=== PATIENT | female | born 1935 | race African-American/Black ===

== ENCOUNTER 2018-10-24 20:31 | Emergency (ER) | payer OTHER ==
[~2018-10-24] VITALS: Ht 165.1 cm; Wt 64.4 kg
[2018-10-24 20:35] VITALS: BP_SYST 159
--- NOTE | 2018-10-24 20:45 | NUR ---
2044 - Patient to ER bed 7 to gown for evaluation. Side rails up. Report given to CORBIN Mackay.
--- NOTE | 2018-10-24 20:49 | NUR ---
Pt AAOx4 ambulated into ED c/o 02/06 L flank pain radiating to L abdomen x 5 hours prior to arrival. PT denies N/V/D/dysuria. Skin dry and warm, breathing even and unlabored. No other injuries/complaints per pt/noted. Will continue to monitor.
--- NOTE | 2018-10-24 20:50 | NUR ---
Pt took [place] 5-325 with no relief.
--- NOTE | 2018-10-24 20:51 | NUR ---
ER at bedside examining patient.
--- NOTE | 2018-10-24 21:00 | NUR ---
Pt assisted to ambulate to bathroom in non-slip socks for urine sample. Urine dipstick performed.
[2018-10-24] MEDS ORDERED: NACL 0.9% 1,000 ML IV ONE (21:10)
[2018-10-24] MEDS ORDERED: DIPHENHYDRAMINE INJ 50 MG/ML VIAL IVP ONE (21:15)
[2018-10-24] MEDS ORDERED: MORPHINE 4 MG/ML INJ. SYRINGE IVP ONE (21:15)
[2018-10-24 21:35] LABS: BASOPHILS # (AUTO) 0.1 K/uL (0.0-0.2); BASOPHILS % (AUTO) 0.9 % (0.0-2.0); EOSINOPHILS # (AUTO) 0.3 K/uL (0.0-0.4); EOSINOPHILS % (AUTO) 4.6 % (0.0-4.0); HEMATOCRIT 39.7 % (36-48); HEMOGLOBIN 13.1 g/dL (12.0-16.0); LYMPHOCYTES # (AUTO) 1.1 K/uL (1.0-5.5); LYMPHOCYTES % (AUTO) 18.6 % (20.5-51.5); MEAN CORPUSCULAR HEMOGLOBIN 31 pg (27-31); MEAN CORPUSCULAR HGB CONC 33 % (32-36); MEAN CORPUSCULAR VOLUME 92 fL (79.0-98.0); MONOCYTES # (AUTO) 0.6 K/uL (0.0-1.0); NEUTROPHILS # (AUTO) 3.9 K/uL (1.8-7.7); NEUTROPHILS % (AUTO) 65.9 % (40.0-70.0); PLATELET COUNT (AUTO) 210 K/uL (130-430); RED CELL DISTRIBUTION WIDTH 14.3 % (9.0-15.0); WHITE BLOOD COUNT (AUTO) 5.9 K/uL (4.8-10.8)
--- NOTE | 2018-10-24 21:49 | NUR ---
Pt went to CT scan via [facility]. Tolerated well. WIll cont. to monitor.
[2018-10-24 21:58] LABS: ANION GAP 9 (5-15); CALCIUM 9.4 mg/dL (8.4-11.0); CHLORIDE 104 mmol/L (98-107); CREATININE 1.06 mg/dL (0.55-1.30); GLUCOSE 135 mg/dL (70-99); POTASSIUM 4.1 mmol/L (3.5-5.1); SODIUM SERUM 139 mmol/L (136-145); UREA NITROGEN, BLOOD 18 mg/dL (8-21)
[2018-10-24 22:03] LABS: ALANINE AMINOTRANSFERASE 22 U/L (12-78); ALBUMIN 3.2 g/dL (3.4-4.8); ASPARTATE AMINOTRANSFERASE 22 U/L (10-37); TOTAL BILIRUBIN 0.5 mg/dL (0.0-1.0)
[2018-10-24 22:22] LABS: BILIRUBIN,URINE NEGATIVE (NEGATIVE); BLOOD, URINE NEGATIVE (NEGATIVE); CLARITY/URINE CLEAR (CLEAR); COLOR,URINE YELLOW (YELLOW); GLUCOSE,URINE NEGATIVE (NEGATIVE); KETONES,URINE TRACE (NEGATIVE); LEUKOCYTE ESTERASE ,URINE 2+ (NEGATIVE); NITRITE, URINE NEGATIVE (NEGATIVE); PROTEIN URINE TRACE (NEGATIVE)
[2018-10-24 22:27] LABS: RBC,URINE 0-3 /HPF (0-3)
[2018-10-24 22:28] LABS: BACTERIA,URINE MODERATE /HPF (None Seen)
--- NOTE | 2018-10-24 23:00 | NUR ---
Pts son states he wants to step out for a litttle he left his number. Tyler [phone]
[2018-10-24] MEDS ORDERED: cefTRIAXone 1 GM IVPB PREMIX 50 ML IV ONE (23:45)
[2018-10-25 00:20] VITALS: BP_SYST 159
--- NOTE | 2018-10-25 00:20 | NUR ---
Patient given written and verbal discharge instructions and verbalizes understanding. ER MD Dr. Gardiner discussed with patient the results and treatment provided. Patient in stable condition. ID arm band removed. IV catheter removed intact and dressing applied, no active bleeding. Rx of Keflex given. Patient educated on pain management and to follow up with PMD. Pain Scale 2/10, tolerable for pt. Opportunity for questions provided and answered. Medication side effect fact sheet provided.
== END 2018-10-25 00:20 | disposition home or self-care (01) ==
LOC: SED 20:31
DX: N39.0 Urinary tract infection, site not specified (principal); I10 Essential (primary) hypertension
CPT/HCPCS: 36415; 74176; 80053; 81000; 85025; 87040; 96365; 96375; 99284; J0696; J1200; J2270; J7030

== ENCOUNTER 2021-09-08 13:43 | Emergency (ER) | payer OTHER ==
[~2021-09-08] VITALS: Ht 162.6 cm; Wt 45.4 kg
[2021-09-08 13:57] VITALS: BP_SYST 207
--- NOTE | 2021-09-08 13:57 | NUR ---
Patient to ER bed 06 to gown for evaluation. Side rails up.
--- NOTE | 2021-09-08 13:57 | NUR ---
pt driven to the er by son. pt presented to er with complaint of constipation. her last bowel movement was 7 days ago. patient denies any pain. patient took over the counter stool 2 days ago and fiber drink. auscultated pt abdomen pt has active bowel sounds. pt denies vomiting. pt resting comfortably inbed, bed lowered and locked rails up
--- NOTE | 2021-09-08 14:08 | NUR ---
at pt bedside
[2021-09-08 14:34] LABS: BILIRUBIN,URINE NEGATIVE (NEGATIVE); CLARITY/URINE CLEAR (CLEAR); COLOR,URINE YELLOW (YELLOW); GLUCOSE,URINE NEGATIVE (NEGATIVE); KETONES,URINE NEGATIVE (NEGATIVE); LEUKOCYTE ESTERASE ,URINE TRACE (NEGATIVE); NITRITE, URINE NEGATIVE (NEGATIVE); PROTEIN URINE 1+ (NEGATIVE); UROBILINOGEN,URINE 0.2 (0.2-1.0)
[2021-09-08 14:43] LABS: BLOOD, URINE TRACE (NEGATIVE)
[2021-09-08 14:44] LABS: BACTERIA,URINE FEW /HPF (None Seen); MUCUS,URINE 1+ /LPF (None Seen)
[2021-09-08 15:05] LABS: ANION GAP 6 (5-15); BASOPHILS % (AUTO) 0.6 % (0.0-2.0); CALCIUM 9.6 mg/dL (8.4-11.0); CHLORIDE 105 mmol/L (98-107); CREATININE 0.81 mg/dL (0.55-1.30); EOSINOPHILS # (AUTO) 0.1 K/uL (0.0-0.4); EOSINOPHILS % (AUTO) 3.1 % (0.0-4.0); GLUCOSE 111 mg/dL (70-99); HEMATOCRIT 41.7 % (36-48); HEMOGLOBIN 13.8 g/dL (12.0-16.0); LYMPHOCYTES # (AUTO) 0.8 K/uL (1.0-5.5); LYMPHOCYTES % (AUTO) 22.3 % (20.5-51.5); MEAN CORPUSCULAR HEMOGLOBIN 30 pg (27-31); MEAN CORPUSCULAR HGB CONC 33 % (32-36); MEAN CORPUSCULAR VOLUME 92 fL (79.0-98.0); MONOCYTES # (AUTO) 0.3 K/uL (0.0-1.0); MONOCYTES % (AUTO) 9.3 % (1.7-9.3); NEUTROPHILS # (AUTO) 2.3 K/uL (1.8-7.7); NEUTROPHILS % (AUTO) 64.7 % (40.0-70.0); PLATELET COUNT (AUTO) 145 K/uL (130-430); POTASSIUM 4.2 mmol/L (3.5-5.1); RED BLOOD CELL COUNT(AUTO) 4.54 MIL/uL (4.2-6.2); RED CELL DISTRIBUTION WIDTH 14.2 % (9.0-15.0); SODIUM SERUM 140 mmol/L (136-145); UREA NITROGEN, BLOOD 10 mg/dL (8-21); WHITE BLOOD COUNT (AUTO) 3.5 K/uL (4.8-10.8)
[2021-09-08 15:17] LABS: ALANINE AMINOTRANSFERASE 11 U/L (12-78); ALBUMIN 3.5 g/dL (3.4-4.8); AMYLASE 43 U/L (0-100); ASPARTATE AMINOTRANSFERASE 22 U/L (10-37); LACTATE DEHYDROGENASE 204 U/L (81-234); LIPASE 84 U/L (73-393); TOTAL BILIRUBIN 0.6 mg/dL (0.0-1.0)
[2021-09-08] MEDS ORDERED: MAGN296S8 PO ×2 (15:33→15:54)
[2021-09-08] MEDS ORDERED: DOCU-144 PO ×2 (15:33→15:54)
[2021-09-08] MEDS ORDERED: FLEETMO RC ×2 (15:33→15:54)
--- NOTE | 2021-09-08 16:02 | NUR ---
Patient given written and verbal discharge instructions and verbalizes understanding. ER Dr Georgi BARKER discussed with patient the results and treatment provided. Patient in stable condition. ID arm band removed. Rx of docusate sodium, mineral oil (fleet mineral oil enema)magnesium citrate given. Patient educated on pain management and to follow up with PMD. Pain Scale . Opportunity for questions provided and answered. Medication side effect fact sheet provided.
[2021-09-08 16:07] VITALS: BP_SYST 178
[2021-09-08 17:20] LABS: C-REACTIVE PROTEIN QUANT < 0.2 mg/dL (0-0.5)
== END 2021-09-08 16:07 | disposition home or self-care (01) ==
LOC: SED 13:43
DX: K59.00 Constipation, unspecified (principal); I10 Essential (primary) hypertension
CPT/HCPCS: 36415; 76376; 80053; 81000; 82150; 83605; 83615; 83690; 84484; 85025; 86140; 87086; 99284

== ENCOUNTER 2022-09-17 16:45 | Inpatient (IN) | payer OTHER ==
[~2022-09-17] VITALS: Ht 165.1 cm; Wt 59.0 kg
[~2022-09-17 16:45] MED LIST: DOCU-144 PO; FLEETMO RC; MAGN296S8 PO
[2022-09-17 17:00] VITALS: BP_SYST 142
[2022-09-17] MEDS ORDERED: ASPIRIN 81 MG TAB.CHEW PO ONE (17:30)
[2022-09-17] MEDS ORDERED: ONDANSETRON HCL 4 MG/2 ML VIAL IVP ONE (17:45)
[2022-09-17] MEDS ORDERED: NACL 0.9% 1,000 ML IV ONE (17:45)
[2022-09-17] MEDS ORDERED: MORPHINE 2 MG/ML INJ. SYRINGE IVP ONE (17:45)
[2022-09-17 17:47] LABS: BASOPHILS % (AUTO) 0.6 % (0.0-2.0); EOSINOPHILS # (AUTO) 0.2 K/uL (0.0-0.4); EOSINOPHILS % (AUTO) 2.8 % (0.0-4.0); HEMATOCRIT 34.8 % (36-48); HEMOGLOBIN 11.5 g/dL (12.0-16.0); LYMPHOCYTES % (AUTO) 13.2 % (20.5-51.5); MEAN CORPUSCULAR HEMOGLOBIN 32 pg (27-31); MEAN CORPUSCULAR HGB CONC 33 % (32-36); MEAN CORPUSCULAR VOLUME 95 fL (79.0-98.0); MONOCYTES # (AUTO) 0.7 K/uL (0.0-1.0); MONOCYTES % (AUTO) 9.8 % (1.7-9.3); NEUTROPHILS # (AUTO) 5.6 K/uL (1.8-7.7); NEUTROPHILS % (AUTO) 73.6 % (40.0-70.0); PLATELET COUNT (AUTO) 150 K/uL (130-430); RED BLOOD CELL COUNT(AUTO) 3.66 MIL/uL (4.2-6.2); RED CELL DISTRIBUTION WIDTH 14.5 % (9.0-15.0); WHITE BLOOD COUNT (AUTO) 7.6 K/uL (4.8-10.8)
[2022-09-17 17:50] LABS: ANION GAP 3 (5-15); CALCIUM 8.4 mg/dL (8.4-11.0); CHLORIDE 106 mmol/L (98-107); CREATININE 0.92 mg/dL (0.55-1.30); GLUCOSE 139 mg/dL (70-99); UREA NITROGEN, BLOOD 15 mg/dL (8-21)
[2022-09-17 17:57] LABS: ALANINE AMINOTRANSFERASE 15 U/L (12-78); ALBUMIN 3.1 g/dL (3.4-4.8); ASPARTATE AMINOTRANSFERASE 18 U/L (10-37); TOTAL BILIRUBIN 0.4 mg/dL (0.0-1.0)
[2022-09-17] MEDS ORDERED: AMLO10TA88 PO (22:13)
[2022-09-17] MEDS ORDERED: LISI20TA30 PO (22:13)
[2022-09-17] MEDS ORDERED: AMLO5TAB92 PO (22:14)
[2022-09-17] MEDS ORDERED: ATOR40TA68 PO (22:16)
[2022-09-17] MEDS ORDERED: METO100T14 PO (22:16)
[2022-09-17] MEDS ORDERED: ACETAMINOPHEN 325 MG TABLET PO PRN (22:30)
[2022-09-17] MEDS ORDERED: ONDANSETRON HCL 4 MG/2 ML VIAL IVP PRN (22:30)
[2022-09-17] MEDS ORDERED: MILK OF MAGNESIA 30 ML UDC PO PRN (22:30)
[2022-09-17] MEDS ORDERED: NALOXONE HCL 0.4 MG/ML AMP (NARCAN) IVP PRN (22:30)
[2022-09-17 23:25] VITALS: BP_SYST 148
[2022-09-18] MEDS: MORPHINE 4 MG INJ. 4 MG/ML VIAL IVP PRN ×3 (00:17→18:06)
[2022-09-18] MEDS: D5LR 1,000 ML IV SCH ×3 (00:19→23:30)
[2022-09-18 03:00] VITALS: BP_SYST 125
[2022-09-18 03:06] LABS: BILIRUBIN,URINE NEGATIVE (NEGATIVE); CLARITY/URINE CLEAR (CLEAR); COLOR,URINE YELLOW (YELLOW); GLUCOSE,URINE NEGATIVE (NEGATIVE); KETONES,URINE NEGATIVE (NEGATIVE); LEUKOCYTE ESTERASE ,URINE NEGATIVE (NEGATIVE); NITRITE, URINE NEGATIVE (NEGATIVE); PROTEIN URINE NEGATIVE (NEGATIVE)
[2022-09-18 03:38] LABS: BLOOD, URINE TRACE (NEGATIVE)
[2022-09-18 08:11] VITALS: BP_SYST 153
[2022-09-18 08:29] LABS: ANION GAP 6 (5-15); CALCIUM 8.2 mg/dL (8.4-11.0); CHLORIDE 106 mmol/L (98-107); CREATININE 0.88 mg/dL (0.55-1.30); GLUCOSE 162 mg/dL (70-99); UREA NITROGEN, BLOOD 13 mg/dL (8-21)
[2022-09-18 08:31] LABS: BASOPHILS % (AUTO) 0.4 % (0.0-2.0); EOSINOPHILS % (AUTO) 0.4 % (0.0-4.0); HEMATOCRIT 32.9 % (36-48); LYMPHOCYTES # (AUTO) 0.8 K/uL (1.0-5.5); LYMPHOCYTES % (AUTO) 13.1 % (20.5-51.5); MEAN CORPUSCULAR HEMOGLOBIN 32 pg (27-31); MEAN CORPUSCULAR HGB CONC 33 % (32-36); MEAN CORPUSCULAR VOLUME 96 fL (79.0-98.0); MONOCYTES # (AUTO) 0.6 K/uL (0.0-1.0); MONOCYTES % (AUTO) 10.4 % (1.7-9.3); NEUTROPHILS # (AUTO) 4.4 K/uL (1.8-7.7); NEUTROPHILS % (AUTO) 75.7 % (40.0-70.0); PLATELET COUNT (AUTO) 139 K/uL (130-430); RED BLOOD CELL COUNT(AUTO) 3.44 MIL/uL (4.2-6.2); RED CELL DISTRIBUTION WIDTH 14.5 % (9.0-15.0); WHITE BLOOD COUNT (AUTO) 5.9 K/uL (4.8-10.8)
[2022-09-18 08:32] LABS: INR 0.9 (0.8-1.2); PROTHROMBIN TIME 9.8 SECS (9.5-12.5)
[2022-09-18 08:44] LABS: TOTAL IRON BIND. CAPACITY 215 ug/dL (250-450)
[2022-09-18] MEDS ORDERED: METOPROLOL TARTRATE PO SCH (09:00)
[2022-09-18] MEDS ORDERED: DOCUSATE SODIUM 100 MG CAPSULE PO SCH (09:00)
[2022-09-18] MEDS: amLODIPine BESYLATE 5 MG TABLET PO SCH (09:19)
[2022-09-18] MEDS: lisinopriL 20 MG TABLET PO SCH (09:20)
[2022-09-18] MEDS: ATORVASTATIN 20 MG TABLET PO SCH (09:21)
[2022-09-18] MEDS: METOPROLOL TARTRATE 50 MG TABLET PO SCH ×2 (09:22→20:49)
[2022-09-18] MEDS ORDERED: DORZ10DR13 EACH EYE (10:01)
[2022-09-18] MEDS ORDERED: LATA5DRO EACH EYE (10:01)
[2022-09-18] MEDS ORDERED: [UNRECOGNIZED DRUG - CODE] EACH EYE (10:02)
[2022-09-18] MEDS ORDERED: DOCUSATE SODIUM 250 MG CAPSULE PO ONE (10:45)
[2022-09-18] MEDS ORDERED: MULTIVITS,CA,MINERALS/IRON/FA 1 TABLET PO ONE (11:45)
[2022-09-18] MEDS ORDERED: CHOLECALCIFEROL (VITAMIN D3) 2,000 UNIT TABLET PO ONE (11:45)
[2022-09-18 12:00] VITALS: BP_SYST 140
[2022-09-18 16:00] VITALS: BP_SYST 135
[2022-09-18] MEDS: Latanoprostene Bunod (Vyzulta) OP SCH (18:05)
[2022-09-18] MEDS: DOCUSATE SODIUM 250 MG CAPSULE PO SCH (20:47)
[2022-09-18 22:12] VITALS: BP_SYST 134
[2022-09-19] VITALS: BP_SYST 137
[2022-09-19 03:18] VITALS: BP_SYST 134
[2022-09-19] MEDS: MORPHINE 2 MG/ML INJ. SYRINGE IVP PRN ×2 (03:36→23:26)
[2022-09-19 08:09] VITALS: BP_SYST 114
[2022-09-19] MEDS: DORZOLAMIDE HCL/TIMOLOL MAL. 10 ML EYE DROPS (COSOPT) EACH EYE SCH (08:18)
[2022-09-19] MEDS: ATORVASTATIN 20 MG TABLET PO SCH (08:19)
[2022-09-19] MEDS: lisinopriL 20 MG TABLET PO SCH (08:20)
[2022-09-19] MEDS: METOPROLOL TARTRATE 50 MG TABLET PO SCH ×2 (08:21→20:17)
[2022-09-19] MEDS: MULTIVITS,CA,MINERALS/IRON/FA 1 TABLET PO SCH (08:22)
[2022-09-19] MEDS: DOCUSATE SODIUM 250 MG CAPSULE PO SCH ×2 (08:22→20:17)
[2022-09-19] MEDS: amLODIPine BESYLATE 5 MG TABLET PO SCH (08:22)
[2022-09-19] MEDS: CHOLECALCIFEROL (VITAMIN D3) 2,000 UNIT TABLET PO SCH (08:23)
[2022-09-19] MEDS ORDERED: LATANOPROSTENE BUNOD EACH EYE SCH (09:00)
[2022-09-19] MEDS: D5LR 1,000 ML IV SCH (12:16)
[2022-09-19 12:52] VITALS: BP_SYST 125
[2022-09-19 16:28] VITALS: BP_SYST 118
[2022-09-19 20:00] VITALS: BP_SYST 142
[2022-09-19] MEDS: Latanoprostene Bunod (Vyzulta) OP SCH (20:19)
[2022-09-20] MEDS: D5LR 1,000 ML IV SCH ×2 (00:30→16:24)
[2022-09-20 00:55] VITALS: BP_SYST 143
[2022-09-20 08:00] VITALS: BP_SYST 131
[2022-09-20] MEDS: amLODIPine BESYLATE 5 MG TABLET PO SCH (08:45)
[2022-09-20] MEDS: MULTIVITS,CA,MINERALS/IRON/FA 1 TABLET PO SCH (08:45)
[2022-09-20] MEDS: CHOLECALCIFEROL (VITAMIN D3) 2,000 UNIT TABLET PO SCH (08:46)
[2022-09-20] MEDS: ATORVASTATIN 20 MG TABLET PO SCH (08:47)
[2022-09-20] MEDS: DOCUSATE SODIUM 250 MG CAPSULE PO SCH ×2 (08:47→20:10)
[2022-09-20] MEDS: lisinopriL 20 MG TABLET PO SCH (08:47)
[2022-09-20] MEDS: DORZOLAMIDE HCL/TIMOLOL MAL. 10 ML EYE DROPS (COSOPT) EACH EYE SCH (08:48)
[2022-09-20] MEDS: METOPROLOL TARTRATE 50 MG TABLET PO SCH ×2 (08:48→20:10)
[2022-09-20 11:34] VITALS: BP_SYST 131
[2022-09-20 16:17] VITALS: BP_SYST 136
[2022-09-20] MEDS: Latanoprostene Bunod (Vyzulta) OP SCH (18:14)
[2022-09-20] MEDS ORDERED: PIPERACILLIN/TAZO 3.375/DEX-IS 50 ML IV ONE (19:00)
[2022-09-20 20:00] VITALS: BP_SYST 155
[2022-09-20] MEDS: PIPERACILLIN/TAZO 3.375/DEX-IS 50 ML IV SCH (23:07)
[2022-09-21] VITALS: BP_SYST 127
[2022-09-21] MEDS: D5LR 1,000 ML IV SCH ×3 (01:30→22:55)
[2022-09-21 02:24] VITALS: BP_SYST 155
[2022-09-21] MEDS: PIPERACILLIN/TAZO 3.375/DEX-IS 50 ML IV SCH ×4 (06:02→23:19)
[2022-09-21 07:30] VITALS: BP_SYST 133
[2022-09-21] MEDS: METOPROLOL TARTRATE 50 MG TABLET PO SCH ×2 (09:00→20:59)
[2022-09-21] MEDS: DOCUSATE SODIUM 250 MG CAPSULE PO SCH ×2 (09:00→20:59)
[2022-09-21] MEDS: ATORVASTATIN 20 MG TABLET PO SCH (09:00)
[2022-09-21] MEDS: MULTIVITS,CA,MINERALS/IRON/FA 1 TABLET PO SCH (09:00)
[2022-09-21] MEDS: CHOLECALCIFEROL (VITAMIN D3) 2,000 UNIT TABLET PO SCH (09:00)
[2022-09-21] MEDS: lisinopriL 20 MG TABLET PO SCH (09:00)
[2022-09-21] MEDS: amLODIPine BESYLATE 5 MG TABLET PO SCH (09:00)
[2022-09-21] MEDS: DORZOLAMIDE HCL/TIMOLOL MAL. 10 ML EYE DROPS (COSOPT) EACH EYE SCH (09:00)
[2022-09-21] MEDS ORDERED: BUPIVACAINE /PF 0.5% 30 ML VIAL ONE (10:00)
[2022-09-21] MEDS ORDERED: NS IRRIG SOLN 1000 ML IR ONE (10:00)
[2022-09-21] MEDS ORDERED: fentaNYL CITRATE/PF 100 MCG/2 ML AMP IVP ONE (10:00)
[2022-09-21] MEDS ORDERED: LR 1,000 ML IV.SOLN IV ONE (10:00)
[2022-09-21] MEDS ORDERED: DESFLURANE 15 MIN GAS INH ONE (10:00)
[2022-09-21] MEDS ORDERED: ceFAZolin SODIUM 1 GM VIAL ONE (10:00)
[2022-09-21] MEDS ORDERED: DEXAMETHASONE SOD PHOSPHATE 4 MG/ML VIAL ONE (10:00)
[2022-09-21] MEDS ORDERED: WATER FOR IRRIGATION,STERILE 1,000 ML IRRIG.SOLN IR ONE (10:00)
[2022-09-21] MEDS ORDERED: KETOROLAC TROMETHAMINE 30 MG VIAL ONE (10:00)
[2022-09-21] MEDS ORDERED: ONDANSETRON HCL 4 MG/2 ML VIAL ONE (10:00)
[2022-09-21] MEDS ORDERED: PROPOFOL 200MG/ 20ML VIAL (DIPRIVAN) IV ONE (10:00)
[2022-09-21] MEDS ORDERED: ACETAMINOPHEN I.V. 1000 MG 100 ML IV ONE (10:29)
[2022-09-21] MEDS ORDERED: NALOXONE HCL 0.4 MG/ML AMP (NARCAN) IVP PRN ×2 (10:45)
[2022-09-21] MEDS ORDERED: HYDROmorphone 1 MG/ML INJ. CARTRIDGE IVP PRN ×2 (10:45)
[2022-09-21] MEDS ORDERED: CYANOCOBALAMIN 1000 MCG/ML VIAL IM ONE (17:00)
[2022-09-21 17:33] VITALS: BP_SYST 117
[2022-09-21] MEDS: SOD FERRIC GLUC COMPLEX/SUC 125 MG in NS 100 ML IV SCH (18:40)
[2022-09-21] MEDS: Latanoprostene Bunod (Vyzulta) OP SCH (18:45)
[2022-09-21 20:00] VITALS: BP_SYST 123
[2022-09-22] VITALS: BP_SYST 122
[2022-09-22] MEDS: PIPERACILLIN/TAZO 3.375/DEX-IS 50 ML IV SCH (06:37)
[2022-09-22 06:45] LABS: BASOPHILS % (AUTO) 0.2 % (0.0-2.0); EOSINOPHILS % (AUTO) 0.1 % (0.0-4.0); HEMATOCRIT 22.6 % (36-48); HEMOGLOBIN 7.5 g/dL (12.0-16.0); LYMPHOCYTES # (AUTO) 0.5 K/uL (1.0-5.5); LYMPHOCYTES % (AUTO) 8.3 % (20.5-51.5); MEAN CORPUSCULAR HEMOGLOBIN 31 pg (27-31); MEAN CORPUSCULAR HGB CONC 33 % (32-36); MEAN CORPUSCULAR VOLUME 94 fL (79.0-98.0); MONOCYTES # (AUTO) 0.8 K/uL (0.0-1.0); MONOCYTES % (AUTO) 12.7 % (1.7-9.3); NEUTROPHILS # (AUTO) 5.1 K/uL (1.8-7.7); NEUTROPHILS % (AUTO) 78.7 % (40.0-70.0); PLATELET COUNT (AUTO) 133 K/uL (130-430); RED BLOOD CELL COUNT(AUTO) 2.41 MIL/uL (4.2-6.2); RED CELL DISTRIBUTION WIDTH 14.2 % (9.0-15.0); WHITE BLOOD COUNT (AUTO) 6.5 K/uL (4.8-10.8)
[2022-09-22] MEDS: MORPHINE 2 MG/ML INJ. SYRINGE IVP PRN (06:46)
[2022-09-22 07:05] LABS: ANION GAP 6 (5-15); CALCIUM 7.6 mg/dL (8.4-11.0); CHLORIDE 104 mmol/L (98-107); CREATININE 0.89 mg/dL (0.55-1.30); GLUCOSE 143 mg/dL (70-99); UREA NITROGEN, BLOOD 19 mg/dL (8-21)
[2022-09-22] MEDS ORDERED: CEFAZOLIN 2 GM IVPB PREMIX 50 ML IV ONE (08:30)
[2022-09-22 08:40] VITALS: BP_SYST 135
[2022-09-22] MEDS: CYANOCOBALAMIN (VITAMIN B-12) 1,000 MCG TABLET PO SCH (09:48)
[2022-09-22] MEDS: lisinopriL 20 MG TABLET PO SCH (09:49)
[2022-09-22] MEDS: amLODIPine BESYLATE 5 MG TABLET PO SCH (09:49)
[2022-09-22] MEDS: DOCUSATE SODIUM 250 MG CAPSULE PO SCH ×2 (09:49→21:29)
[2022-09-22] MEDS: METOPROLOL TARTRATE 50 MG TABLET PO SCH ×2 (09:50→21:29)
[2022-09-22] MEDS: DORZOLAMIDE HCL/TIMOLOL MAL. 10 ML EYE DROPS (COSOPT) EACH EYE SCH (09:50)
[2022-09-22] MEDS: ATORVASTATIN 20 MG TABLET PO SCH (09:51)
[2022-09-22] MEDS: MULTIVITS,CA,MINERALS/IRON/FA 1 TABLET PO SCH (09:51)
[2022-09-22] MEDS: CHOLECALCIFEROL (VITAMIN D3) 2,000 UNIT TABLET PO SCH (09:51)
[2022-09-22 11:19] VITALS: BP_SYST 113
[2022-09-22] MEDS ORDERED: EPOETIN ALFA-EPBX 4,000 UNITS/ML VIAL SUBCUT ONE (14:30)
[2022-09-22] MEDS: CEFAZOLIN 2 GM IVPB PREMIX 50 ML IV SCH ×2 (14:44→21:31)
[2022-09-22] MEDS: D5LR 1,000 ML IV SCH (14:45)
[2022-09-22 16:00] VITALS: BP_SYST 115
[2022-09-22] MEDS: MORPHINE 4 MG INJ. 4 MG/ML VIAL IVP PRN (17:47)
[2022-09-22] MEDS: SOD FERRIC GLUC COMPLEX/SUC 125 MG in NS 100 ML IV SCH (17:48)
[2022-09-22] MEDS: Latanoprostene Bunod (Vyzulta) OP SCH (17:52)
[2022-09-22 20:00] VITALS: BP_SYST 112
[2022-09-23] VITALS: BP_SYST 106
[2022-09-23] MEDS: D5LR 1,000 ML IV SCH (03:30)
[2022-09-23] MEDS: CEFAZOLIN 2 GM IVPB PREMIX 50 ML IV SCH (05:27)
[2022-09-23 06:18] LABS: ANION GAP 5 (5-15); CALCIUM 7.6 mg/dL (8.4-11.0); CHLORIDE 105 mmol/L (98-107); GLUCOSE 128 mg/dL (70-99); UREA NITROGEN, BLOOD 17 mg/dL (8-21)
[2022-09-23 07:26] LABS: BASOPHILS % (AUTO) 0.6 % (0.0-2.0); EOSINOPHILS # (AUTO) 0.3 K/uL (0.0-0.4); EOSINOPHILS % (AUTO) 3.7 % (0.0-4.0); HEMATOCRIT 22.4 % (36-48); HEMOGLOBIN 7.3 g/dL (12.0-16.0); LYMPHOCYTES # (AUTO) 1.1 K/uL (1.0-5.5); LYMPHOCYTES % (AUTO) 13.1 % (20.5-51.5); MEAN CORPUSCULAR HEMOGLOBIN 31 pg (27-31); MEAN CORPUSCULAR HGB CONC 33 % (32-36); MEAN CORPUSCULAR VOLUME 95 fL (79.0-98.0); MONOCYTES # (AUTO) 0.8 K/uL (0.0-1.0); MONOCYTES % (AUTO) 10.2 % (1.7-9.3); NEUTROPHILS # (AUTO) 5.8 K/uL (1.8-7.7); NEUTROPHILS % (AUTO) 72.4 % (40.0-70.0); PLATELET COUNT (AUTO) 165 K/uL (130-430); RED BLOOD CELL COUNT(AUTO) 2.35 MIL/uL (4.2-6.2); RED CELL DISTRIBUTION WIDTH 14.9 % (9.0-15.0)
[2022-09-23 08:19] LABS: RETICULOCYTE COUNT 4.2 % (0.5-1.5)
[2022-09-23] MEDS: ATORVASTATIN 20 MG TABLET PO SCH (09:18)
[2022-09-23] MEDS: amLODIPine BESYLATE 5 MG TABLET PO SCH (09:18)
[2022-09-23] MEDS: MULTIVITS,CA,MINERALS/IRON/FA 1 TABLET PO SCH (09:18)
[2022-09-23] MEDS: METOPROLOL TARTRATE 50 MG TABLET PO SCH ×2 (09:18→22:28)
[2022-09-23] MEDS: DOCUSATE SODIUM 250 MG CAPSULE PO SCH ×2 (09:18→22:28)
[2022-09-23] MEDS: CYANOCOBALAMIN (VITAMIN B-12) 1,000 MCG TABLET PO SCH (09:19)
[2022-09-23] MEDS: CHOLECALCIFEROL (VITAMIN D3) 2,000 UNIT TABLET PO SCH (09:19)
[2022-09-23] MEDS: lisinopriL 20 MG TABLET PO SCH (09:19)
[2022-09-23] MEDS: DORZOLAMIDE HCL/TIMOLOL MAL. 10 ML EYE DROPS (COSOPT) EACH EYE SCH (09:20)
[2022-09-23 12:02] VITALS: BP_SYST 127
[2022-09-23 16:10] VITALS: BP_SYST 122
[2022-09-23] MEDS: SOD FERRIC GLUC COMPLEX/SUC 125 MG in NS 100 ML IV SCH (17:00)
[2022-09-23] MEDS: PIPERACILLIN/TAZO 3.375/DEX-IS 50 ML IV SCH (18:15)
[2022-09-23] MEDS: Latanoprostene Bunod (Vyzulta) OP SCH (18:51)
[2022-09-23 20:00] VITALS: BP_SYST 134
[2022-09-24 00:44] VITALS: BP_SYST 116
[2022-09-24] MEDS: PIPERACILLIN/TAZO 3.375/DEX-IS 50 ML IV SCH ×5 (00:50→23:42)
[2022-09-24 07:16] LABS: ANION GAP 6 (5-15); CALCIUM 7.7 mg/dL (8.4-11.0); CHLORIDE 105 mmol/L (98-107); CREATININE 0.88 mg/dL (0.55-1.30); GLUCOSE 117 mg/dL (70-99); UREA NITROGEN, BLOOD 16 mg/dL (8-21)
[2022-09-24 07:24] LABS: BASOPHILS # (AUTO) 0.1 K/uL (0.0-0.2); BASOPHILS % (AUTO) 0.6 % (0.0-2.0); EOSINOPHILS # (AUTO) 0.3 K/uL (0.0-0.4); EOSINOPHILS % (AUTO) 3.4 % (0.0-4.0); HEMOGLOBIN 7.1 g/dL (12.0-16.0); LYMPHOCYTES % (AUTO) 11.5 % (20.5-51.5); MEAN CORPUSCULAR HEMOGLOBIN 32 pg (27-31); MEAN CORPUSCULAR HGB CONC 33 % (32-36); MEAN CORPUSCULAR VOLUME 95 fL (79.0-98.0); MONOCYTES # (AUTO) 0.8 K/uL (0.0-1.0); MONOCYTES % (AUTO) 8.7 % (1.7-9.3); NEUTROPHILS # (AUTO) 6.6 K/uL (1.8-7.7); NEUTROPHILS % (AUTO) 75.8 % (40.0-70.0); PLATELET COUNT (AUTO) 172 K/uL (130-430); RED BLOOD CELL COUNT(AUTO) 2.25 MIL/uL (4.2-6.2); RED CELL DISTRIBUTION WIDTH 14.5 % (9.0-15.0); WHITE BLOOD COUNT (AUTO) 8.8 K/uL (4.8-10.8)
[2022-09-24 08:01] VITALS: BP_SYST 129
[2022-09-24 08:39] LABS: HEMATOCRIT 21.3 % (36-48)
[2022-09-24] MEDS: DOCUSATE SODIUM 250 MG CAPSULE PO SCH ×2 (08:55→21:33)
[2022-09-24] MEDS: ATORVASTATIN 20 MG TABLET PO SCH (08:55)
[2022-09-24] MEDS: CHOLECALCIFEROL (VITAMIN D3) 2,000 UNIT TABLET PO SCH (08:55)
[2022-09-24] MEDS: CYANOCOBALAMIN (VITAMIN B-12) 1,000 MCG TABLET PO SCH (08:56)
[2022-09-24] MEDS: MULTIVITS,CA,MINERALS/IRON/FA 1 TABLET PO SCH (08:57)
[2022-09-24] MEDS: METOPROLOL TARTRATE 50 MG TABLET PO SCH ×2 (08:58→21:33)
[2022-09-24] MEDS: lisinopriL 20 MG TABLET PO SCH (08:58)
[2022-09-24] MEDS: amLODIPine BESYLATE 5 MG TABLET PO SCH (08:59)
[2022-09-24 11:34] VITALS: BP_SYST 116
[2022-09-24] MEDS: Latanoprostene Bunod (Vyzulta) OP SCH (17:32)
[2022-09-24 18:13] VITALS: BP_SYST 129
[2022-09-24] MEDS: SOD FERRIC GLUC COMPLEX/SUC 125 MG in NS 100 ML IV SCH (19:01)
[2022-09-24 20:00] VITALS: BP_SYST 129
[2022-09-24] MEDS: DORZOLAMIDE OP SCH (21:32)
[2022-09-24] MEDS: COMBIGAN OP SCH (21:32)
[2022-09-24] MEDS: EYE OP SCH ×2 (21:32)
[2022-09-24] MEDS: MORPHINE 4 MG INJ. 4 MG/ML VIAL IVP PRN (23:53)
[2022-09-25] VITALS: BP_SYST 122
[2022-09-25] MEDS: PIPERACILLIN/TAZO 3.375/DEX-IS 50 ML IV SCH ×2 (05:06→14:55)
[2022-09-25 07:31] LABS: BASOPHILS % (AUTO) 0.4 % (0.0-2.0); EOSINOPHILS # (AUTO) 0.3 K/uL (0.0-0.4); EOSINOPHILS % (AUTO) 3.2 % (0.0-4.0); HEMATOCRIT 22.3 % (36-48); HEMOGLOBIN 7.4 g/dL (12.0-16.0); LYMPHOCYTES # (AUTO) 1.2 K/uL (1.0-5.5); LYMPHOCYTES % (AUTO) 11.5 % (20.5-51.5); MEAN CORPUSCULAR HEMOGLOBIN 32 pg (27-31); MEAN CORPUSCULAR HGB CONC 33 % (32-36); MEAN CORPUSCULAR VOLUME 96 fL (79.0-98.0); MONOCYTES # (AUTO) 0.9 K/uL (0.0-1.0); MONOCYTES % (AUTO) 8.9 % (1.7-9.3); NEUTROPHILS # (AUTO) 7.7 K/uL (1.8-7.7); PLATELET COUNT (AUTO) 211 K/uL (130-430); RED BLOOD CELL COUNT(AUTO) 2.32 MIL/uL (4.2-6.2); RED CELL DISTRIBUTION WIDTH 14.8 % (9.0-15.0); WHITE BLOOD COUNT (AUTO) 10.2 K/uL (4.8-10.8)
[2022-09-25 07:52] LABS: ALANINE AMINOTRANSFERASE 14 U/L (12-78); ALBUMIN 1.9 g/dL (3.4-4.8); ANION GAP 5 (5-15); ASPARTATE AMINOTRANSFERASE 53 U/L (10-37); CALCIUM 7.7 mg/dL (8.4-11.0); CHLORIDE 106 mmol/L (98-107); CREATININE 0.87 mg/dL (0.55-1.30); GLUCOSE 113 mg/dL (70-99); TOTAL BILIRUBIN 0.8 mg/dL (0.0-1.0); UREA NITROGEN, BLOOD 14 mg/dL (8-21)
[2022-09-25 08:00] VITALS: BP_SYST 101; BP_SYST 106
[2022-09-25] MEDS: lisinopriL 20 MG TABLET PO SCH (09:00)
[2022-09-25] MEDS: METOPROLOL TARTRATE 50 MG TABLET PO SCH (09:00)
[2022-09-25] MEDS: amLODIPine BESYLATE 5 MG TABLET PO SCH (09:00)
[2022-09-25] MEDS: COMBIGAN OP SCH (09:49)
[2022-09-25] MEDS: EYE OP SCH ×2 (09:49→10:04)
[2022-09-25] MEDS: CHOLECALCIFEROL (VITAMIN D3) 2,000 UNIT TABLET PO SCH (09:50)
[2022-09-25] MEDS: ATORVASTATIN 20 MG TABLET PO SCH (09:50)
[2022-09-25] MEDS: MULTIVITS,CA,MINERALS/IRON/FA 1 TABLET PO SCH (09:51)
[2022-09-25] MEDS: CYANOCOBALAMIN (VITAMIN B-12) 1,000 MCG TABLET PO SCH (09:52)
[2022-09-25] MEDS: DOCUSATE SODIUM 250 MG CAPSULE PO SCH (09:59)
[2022-09-25] MEDS: DORZOLAMIDE OP SCH (10:04)
[2022-09-25 12:36] VITALS: BP_SYST 110
[2022-09-25] MEDS: SOD FERRIC GLUC COMPLEX/SUC 125 MG in NS 100 ML IV SCH (12:47)
[2022-09-25] MEDS ORDERED: MULT-1145 PO (14:17)
[2022-09-25] MEDS ORDERED: VITD2000 PO (14:17)
[2022-09-25] MEDS ORDERED: METO-442 PO (14:17)
[2022-09-25] MEDS ORDERED: CYAN-45 PO (14:17)
[2022-09-25] MEDS ORDERED: LOVI40 SUBCUT (14:41)
[2022-09-25 15:50] VITALS: BP_SYST 132
[2022-09-25 15:53] VITALS: BP_SYST 132
[2022-09-25 16:00] VITALS: BP_SYST 132
[2022-09-25] MEDS ORDERED: METOPROLOL TARTRATE 50 MG TABLET PO SCH ×2 (21:00)
[2022-09-26] MEDS ORDERED: ENOXAPARIN SODIUM 40 MG/0.4 ML SYRINGE SUBCUT SCH (09:00)
== END 2022-09-25 18:26 | DRG 480 ==
LOC: SED 16:45 → STU 21:26 → SMU 09-22 15:45
PROVIDERS: ADMIT Internal Medicine; ATTEND Internal Medicine
PROC: 0QS606Z Reposition Right Upper Femur with Intramedullary Internal Fixation Device, Open Approach (ICD-10-PCS; principal; 2022-09-21 10:00)
DX: S72.141A Displaced intertrochanteric fracture of right femur, initial encounter for closed fracture (principal); J18.9 Pneumonia, unspecified organism; E44.1 Mild protein-calorie malnutrition; D62 Acute posthemorrhagic anemia; I10 Essential (primary) hypertension; E78.5 Hyperlipidemia, unspecified; Z20.822 Contact with and (suspected) exposure to COVID-19; W01.0XXA Fall on same level from slipping, tripping and stumbling without subsequent striking against object, initial encounter; G47.00 Insomnia, unspecified; F41.9 Anxiety disorder, unspecified; E53.8 Deficiency of other specified B group vitamins; E55.9 Vitamin D deficiency, unspecified; Y93.89 Activity, other specified; Y92.89 Other specified places as the place of occurrence of the external cause; Y99.8 Other external cause status; Z68.21 Body mass index [BMI] 21.0-21.9, adult
CPT/HCPCS: 36415; 71045; 71250-TC; 72170-TC; 73552; 76000; 76376; 80048; 80053; 81003; 82306; 82607; 82746; 83540; 83550; 83880; 84484; 85025; 85044; 85610-TC; 85730-TC; 87081; 93005; 93306; 96361; 96374; 96375; 97110-GP; 97116-GP; 97530-GP; 99285; C1713; C1769; C1776; G0378; J0131; J0690; J1100; J1885; J2270; J2405; J2543; J2704; J2916; J3010; J3420; J3490; J7120; Q5106